=== PATIENT | male | born 1985 | race Caucasian/White ===

== ENCOUNTER 2021-01-16 21:05 | Emergency (ER) | payer OTHER ==
[~2021-01-16] VITALS: Ht 172.7 cm; Wt 96.3 kg
[2021-01-16] MEDS ORDERED: DOXY-350 PO (21:21)
[2021-01-17] MEDS ORDERED: KETOROLAC 30 MG/ML 1ML VIAL IV ONE (06:15)
[2021-01-17] MEDS ORDERED: NS 1,000 ML IV ONE (06:15)
[2021-01-17] MEDS ORDERED: ONDANSETRON 4MG/2ML VIAL IV ONE (06:15)
[2021-01-17] MEDS ORDERED: ACETAMINOPHEN 500 MG TAB PO ONE (06:25)
[2021-01-17 07:10] LABS: BASO % 0.4 % (0.0-1.0); EOS % 0.3 % (0.0-3.0); HEMATOCRIT 41.1 % (42.0-52.0); HEMOGLOBIN 14.3 g/dl (13.5-17.5); LYMPH % 10.6 % (24.0-44.0); MEAN CORPUSCULAR HEMOGLOBIN 31.8 pg (27.0-33.0); MEAN CORPUSCULAR HGB CONC 34.8 g/dl (32.0-36.5); MEAN CORPUSCULAR VOLUME 91.5 fl (80.0-96.0); MONO # 0.8 10^3/uL (0.0-0.8); MONO % 8.4 % (2.0-8.0); NEUTROPHILS # 7.2 10^3/uL (1.5-8.5); NEUTROPHILS % 79.9 % (36.0-66.0); PLATELET COUNT, AUTOMATED 170 10^3/uL (150-450); RED BLOOD COUNT 4.49 10^6/uL (4.30-6.10); WHITE BLOOD COUNT 9.1 10^3/uL (4.0-10.0)
[2021-01-17] MEDS ORDERED: cefTRIAXone SOD 1 GM in D5W MINI-BAG PLUS 50 ML IV ONE (07:15)
--- NOTE | 2021-01-17 07:55 | REPVR ---
PROCEDURE INFORMATION: Exam: US Right Non-Vascular Joint or Other Extremity Structure Exam date and time: 01/17/2021 7:40 AM Age: 35 years old Clinical indication: Swelling; Shoulder; Right; Additional info: Erythema, swelling, fever, R/O abscess, R shoulder/chestwall TECHNIQUE: Imaging protocol: Right US joint or other nonvascular extremity structure or structures. Real-time ultrasound with image documentation. Limited study. Exam focused on the upper extremity in the region of clinical interest. COMPARISON: No relevant prior studies available. FINDINGS: Soft tissues: In the area of clinical concern about the right clavicle, there is mild soft tissue edema. No discrete collection is demonstrated. IMPRESSION: Mild soft tissue edema in the area of clinical concern about the right clavicle, without discrete collection demonstrated. Electronically signed by: Colin Johansen On 01/17/2021 07:54:48 AM
[2021-01-17 07:57] LABS: ERYTHROCYTE SEDIMENTATION RATE 35 mm/hr (0-15)
--- NOTE | 2021-01-17 08:06 | REP ---
INDICATION: chest swelling, fever COMPARISON: None. TECHNIQUE: PA and lateral. FINDINGS: The mediastinum and cardiac silhouette are normal. The lung de la torre are clear and without acute consolidation, effusion, or pneumothorax. The skeletal structures are intact and normal. IMPRESSION: No acute cardiopulmonary process. <Electronically signed by Dylan Marroquin > 01/17/21 [id number]
[2021-01-17] MEDS ORDERED: CEPH500C PO (08:42)
[2021-01-17] MEDS ORDERED: ONDA4TAB6 PO (08:42)
[2021-01-17 09:34] VITALS: BP 128/68
[2021-01-18 17:09] LABS: Lyme Disease IgG/IgM Antibodie <0.91 ISR (0.00-0.90); Lyme Disease IgM Ab Quantitati <0.80 index (0.00-0.79)
== END 2021-01-17 09:30 | disposition home or self-care (01) ==
LOC: M ED 21:05
DX: L03.313 Cellulitis of chest wall (principal); R50.9 Fever, unspecified; Z79.899 Other long term (current) drug therapy
CPT/HCPCS: 71046; 76882; 80047; 85025; 85652; 86140; 86617; 87040; 87207; 87798; 96361; 96365; 96375; 99284; J0696; J1885; J2405